=== PATIENT | male | born 1995 | race Caucasian/White ===

== ENCOUNTER 2021-12-05 09:52 | Emergency (ER) | payer OTHER, SELFPAY ==
--- NOTE | ~2021-12-05 | CT_ITS ---
EXAMINATION: CT brain wo con INDICATION: Altered mental status COMPARISON: None TECHNIQUE: Standard unenhanced head CT. The dose-length product (DLP) was 605.33 mGy-cm. The mA was a djusted according to patient size. Iterative reconstruction technique was employed. FINDINGS: There is no intracranial hemorrhage, acute infarction, or abnormal mass lesion. The ventric les are normal. There is no abnormal mass effect or midline shift. The mancini-white matter differentiat ion is normal. The basal cisterns are patent. The orbits are normal. The paranasal sinuses, mastoids and calvarium are normal. IMPRESSION: 1. No acute intracranial abnormality. Reviewed, dictated and finalized at location A.
[2021-12-05 10:06] VITALS: BP 124/66; PULSE 109; RESP 18; TEMP 36.8; O2SAT 99
--- NOTE | 2021-12-05 10:09 | ECG_ITS ---
Measurements Intervals [place] Rate: 80 P: 55 UT: 120 QRS: 16 QRSD: 96 T: 13 QT: 350 QTc: 404 Interpretive Statements SINUS RHYTHM NORMAL ECG Electronically Signed On 12-05-2021 18:52:32 CDT by Yosef Darby D.O.
[2021-12-05 10:26] LABS: Basophils Percent Auto 0.5 % (0.2-1.2); Eosinophils Percent Auto 0.3 % (0-4.4); Hematocrit 43.7 % (42.0-52.0); Hemoglobin 15.4 g/dL (14.0-18.0); Immature Granulocyte Absolute 0.04 K/mm3 (0.00-0.031); Immature Granulocyte Percent A 0.5 % (0-0.5); Lymphocytes Absolute Auto 1.95 K/mm3 (0.9-3.2); Lymphocytes Percent Auto 25.5 % (18.3-44.2); Mean Corpuscular HGB Conc 35.2 g/dl (32-36); Mean Corpuscular Hemoglobin 30.5 pg (26-34); Mean Corpuscular Volume 86.5 fl (80-100); Mean Platelet Volume 9.6 fl (7.4-10.4); Monocytes Absolute Auto 0.4 K/mm3 (0.1-0.6); Monocytes Percent Auto 5.8 % (2.6-8.5); Neutrophils Absolute Auto 5.2 K/mm3 (1.3-6.7); Neutrophils Percent Auto 67.4 % (45.5-73.1); Platelet Count Result 326 k/mm3 (150-375); Red Blood Count 5.05 M/mm3 (4.6-6.20); White Blood Count 7.7 K/mm3 (4.5-10.0)
[2021-12-05 10:37] LABS: Alanine Aminotransferase 20 U/L (6-50); Albumin Level 4.8 g/dL (3.5-5.1); Alkaline Phosphatase 45 U/L (38-126); Anion Gap 12 mmol/L (8-16); Aspartate Amino Transferase 25 U/L (17-59); Blood Urea Nitrogen 14 mg/dL (9-20); Calcium 9.3 mg/dL (8.4-10.2); Carbon Dioxide 23 mmol/L (22-30); Chloride 102 mmol/L (98-107); Estimated CRCL calculation 110 ml/min; Estimated Glomerular Filt Rate > 60; Glucose 118 mg/dL (65-110); Potassium 4.2 mmol/L (3.4-5.0); Sodium 137 mmol/L (137-145)
[2021-12-05 10:40] LABS: INR 1.1; Partial Thromboplastin Time 31.2 SECONDS (22.3-36.8); Prothrombin Time 13.9 Seconds (11.1-14.7)
[2021-12-05 10:48] VITALS: BP 119/77; PULSE 77; RESP 16; O2SAT 98
[2021-12-05 11:07] LABS: Ethanol < 10 mg/dL (<10)
[2021-12-05 11:13] LABS: Appearance Urine Clear (Clear); Bilirubin Urine Negative (Negative); Blood Urine Negative (Negative); Color Urine Yellow (Yellow); Glucose Urine UA Negative (Negative); Ketones Urine Negative (Negative); Leukocyte Esterase Ur Negative LEU/UL (Negative); Nitrate Urine Negative (Negative); Protein Urine Negative (Negative); Specific Grav Ur 1.025 (1.001-1.035); Urobilinogen Urine 0.2 mg/dL (<2.0)
[2021-12-05 11:21] LABS: Amphetamine Screen Urine Negative (Negative); Barbiturate Screen Urine Negative (Negative); Benzodiazepines Screen Urine Negative (Negative); Cannabinoid Screen Urine Positive (Negative); Cocaine Screen Urine Negative (Negative); Methadone Screen Urine Negative (Negative); Opiate Screen Urine Negative (Negative); Phencyclidine Screen Urine Negative (Negative)
[2021-12-05 11:24] VITALS: BP 119/81; PULSE 71; RESP 18; O2SAT 97
[2021-12-05 11:34] LABS: Add Urine Microscopic? NO
[2021-12-05 12:11] VITALS: BP 124/80; PULSE 64; RESP 18; O2SAT 97
--- NOTE | 2021-12-05 13:11 | ED.SEIZURE ---
HPI - Seizure General Chief Complaint: Seizure Stated Complaint: Possible Seizure Time Seen by Provider: 12/05/21 10:12 History of Present Illness HPI Narrative: Patient is a 26-year-old male who presents ER with witnessed seizure by . reports he had 2 separate seizures last day 1 minute each. They are followed by snoring respirations and confusion. No loss of bowel/bladder. No tongue biting. Patient had his arms in extension but is shaking. No history of seizures in the past. Patient reports no drug use last night. He does use cannabis on occasion. Reports he had a couple beers last night but was not overly intoxicated. He does report increased stress due to being and having young child at home. No additional concerns or complaints at this time. Related Data Allergies Allergy/AdvReac Type Severity Reaction Status Date / Time No Known Allergies Allergy Mild Unverified 11/14/10 13:52 Review of Systems Review of Systems: All systems reviewed & are unremarkable except as noted in HPI and below Constitutional: Constitutional: Denies chills, Denies fever(s) and Denies weakness ENT: Denies nasal congestion and Denies sore throat Respiratory: Respiratory: Denies cough and Denies dyspnea Gastrointestinal: Gastrointestinal: Denies abdominal pain, Denies nausea and Denies vomiting Neurologic: Denies headache(s), Denies focal weakness and Denies numbness Comments: Seizure PMFSH Past Medical History Medical History (Updated 12/05/21 @ 13:17 by Denilson Garza MD) No pertinent past medical history Surgical History Surgical History (Updated 12/05/21 @ 13:17 by Denilson Garza MD) No pertinent past surgical history Family History Family History (Updated 03/27/14 @ 07:13 by DOCTOR UNKNOWN) Mother Hypertension Social History Social History Smoking status: Never smoker Alcohol intake: never Exam Narrative: GENERAL: Well-appearing, well-nourished, and in no acute distress. HEAD: Normocephalic, atraumatic. EYES: PERRL and EOMI. ENT: Mucous membranes moist. No tongue biting. NECK: Supple. CHEST: Clear to auscultation. No respiratory distress. HEART: Regular rate and rhythm. Normal peripheral pulses. ABDOMEN: Soft, nontender, nondistended. EXTREMITIES: Normal range of motion. No edema. SKIN: Warm, dry, no rash. NEURO: No facial asymmetry. Clear speech. Alert and oriented x3. PSYCH: Normal mood and affect. Course Course Emergency Course: Patient resting comfortably. Discussed first-time seizure will not treat with antiepileptics. I have contacted Dr. Subramanian who is the on-call physician for people without a primary care physician. He is happy to have patient follow-up with him this week in clinic and will help with referrals to neurology. Patient verbalized understanding of treatment plan. Discussed at length the fact that he should not be driving a vehicle or operating heavy machinery until he is 6 months seizure-free and has been cleared by neurology. Vital Signs Vital signs: Vital Signs Temperature 98.2 F 12/05/21 10:06 Pulse Rate 109 H 12/05/21 10:06 Respiratory Rate 18 12/05/21 10:06 Blood Pressure 124/66 12/05/21 10:06 Pulse Oximetry 99 12/05/21 10:06 Temperature 98.2 F 12/05/21 10:06 Pulse Rate 64 12/05/21 12:11 Respiratory Rate 18 12/05/21 12:11 Blood Pressure 124/80 12/05/21 12:11 Pulse Oximetry 97 12/05/21 12:11 MDM - Seizure Lab Data Result diagrams: 12/05/21 10:14 12/05/21 10:14 Labs: Lab Results 12/05/21 12/05/21 12/05/21 Range/Units 10:14 10:14 10:14 WBC 7.7 (4.5-10.0) K/mm3 RBC 5.05 (4.6-6.20) M/mm3 Hgb 15.4 (14.0-18.0) g/dL Hct 43.7 (42.0-52.0) % MCV 86.5 (80-100) fl MCH 30.5 (26-34) pg MCHC 35.2 (32-36) g/dl RDW 12.0 (11.5-14.5) % Plt Count 326 (150-375) k/mm3 MPV 9.6 (7.4-10.4) fl Immature Gran % (Auto) 0.
[2021-12-05 13:30] VITALS: BP 132/78; PULSE 77; RESP 16; O2SAT 98
== END 2021-12-05 13:31 | disposition home or self-care (01) ==
PROVIDERS: Emergency Provider Emergency Medicine
DX: R56.9 Unspecified convulsions (principal)
CPT/HCPCS: 36415; 70450; 80053; 80307; 81003; 85025; 85610; 85730; 93005; 99284

== ENCOUNTER 2022-01-06 08:05 | Outpatient (CLI) | payer OTHER, SELFPAY ==
--- NOTE | 2022-01-10 15:29 | WPDHOMESLEEP ---
Sleep Study - Home Unattended Date of Study: 01/06/22 Ordering Provider: Melia Saldivar DO Interpreting Provider: Albertina Hubbard MD Home Sleep Study Type: Watch PAT Height: 1.75 m Weight: 77.111 kg Body Mass Index: 25.1 Neck Circumference (inches): 15 [place]: 3 Reason for Sleep Study Hypersomnolence Sleep History Matt Quinonez is a 26 year old man with new onset seizures on December 05, 2021 while sleeping at 9 a.m. He does not awaken from sleep feeling short of breath. He does not awaken at night with heartburn, belching or coughing. He occasionally snores but only rarely loudly enough that others complain about it. He does not have trouble sleeping with a cold. He does not wake up gasping for breath at night. He does not have breathing problems at night observed by others. He does not sweat excessively at night. He does not notice his heart pounding or beating irregularly at night. He occasionally falls asleep in the day but never falls asleep involuntarily or while driving. He does not have loss of muscle tone with strong emotion. He does not have daytime difficulties due to excessive sleepiness. He does not feel paralyzed on waking or falling asleep. He rarely has vivid dreamlike scenes upon awakening or falling asleep. He does not feel afraid to go to sleep. He does not have nightmares. He occasionally remembers his dreams. He frequently has racing thoughts. He rarely feels sad, depressed or anxious. He does not have muscular tension. He rarely notices parts of his body jerking. He does not kick at night. He does not have crawling or aching feelings in his legs. He does not have any kind of leg pain at night. He does not have morning jaw pain. He does not grind his teeth during sleep. He is not bothered by pain during the day nor awakened by pain at night. He does not wake up feeling stiff in the morning rarely wakes up with sore achy muscles and rarely wakes up with pain in the neck and spine. Has headaches. Normal bedtime is between 9:30 and 10:00 p.m. taking 10-15 minutes to fall asleep. He never wakes during the night. He wakes in the morning by 5:00-5:30 a.m. On weekends, his bedtime is between 10 and 11:00 p.m. and he wakes between 9:00 and 9:30 a.m.. He estimates getting 7 to 8 hours of sleep at night. He works from 6:00 a.m. to 2:00 p.m.. He takes naps during the afternoon or evening. A short nap lasting 10 or 15 minutes is usually not refreshing. He generally feels good when he wakes. He feels better in the afternoon compared to other times of day. He occasionally has a morning headache. He occasionally has heartburn at night. He only rarely snores. He rarely has daytime sleepiness. Habits: Never smoked tobacco. Caffeine 2 sodas a day. No alcohol or recreational drugs. [facility] Past Medical History Medical History Seizure Surgical History Surgical History No pertinent past surgical history Family History Family History Mother Hypertension Social History Social History Smoking status: Never smoker Alcohol intake: never Medications Home Medications Medication Instructions Recorded Confirmed Type No Home Medications 12/16/21 12/16/21 History Sleep Procedure The sleep study was completed using SiemensPAT a technically adequate device with seven channels: peripheral arterial tone, actigraphy, body position, snore, respiratory movement, pulse oximetry, sleep staging, and heart rate. Prior to using the device, the patient received verbal and written instructions for its application and was provided with the help desk phone number for additional telephonic instruction with 24-hour availability of qualified personnel to answer questions. Sleep Architecture
[2022-01-12 13:51] VITALS: BMI 25.1
== END 2022-01-07 13:42 | disposition home or self-care (01) ==
LOC: ANHCSM 08:06
PROVIDERS: PCP Internal Medicine; Visit Provider Family Medicine
DX: G47.10 Hypersomnia, unspecified (principal)
CPT/HCPCS: 95800

== ENCOUNTER 2022-04-06 12:45 | Outpatient (CLI) | payer OTHER, SELFPAY ==
[2022-04-08 12:26] LABS: NIL 0.01 IU/mL; Quantiferon TB Plus, 1T NEGATIVE (NEGATIVE)
== END 2022-04-06 12:46 | disposition home or self-care (01) ==
LOC: ANHGOSHLAB 12:46
PROVIDERS: PCP Family Medicine; Visit Provider Family Medicine
DX: Z11.1 Encounter for screening for respiratory tuberculosis (principal)
CPT/HCPCS: 36415; 86480